=== PATIENT | female | born 1990 | race Two or more races ===

== ENCOUNTER 2025-06-07 08:23 | Outpatient (CLI) | payer OTHER ==
[2025-06-07 08:53] LABS: Hematocrit 41.6 % (36.0-46.0); Hemoglobin 13.7 g/dL (12.2-16.2); Mean Corpuscular Hemoglobin 26.2 pg (28.0-32.0); Mean Corpuscular Volume 79.5 fL (80.0-100.0); Nucleated Red Blood Cells % 0.0 %
[2025-06-07 09:48] LABS: Alanine Aminotransferase 13 U/L (7-40); Albumin 4.5 g/dL (3.2-4.8); Alkaline Phosphatase 81 U/L (46-116); Anion Gap 10 (5-15); BUN/Creatinine Ratio 15.5 (10.0-20.0); Blood Urea Nitrogen 13 mg/dL (9-23); Calcium 9.2 mg/dL (8.7-10.4); Carbon Dioxide 24 mmol/L (20-31); Chloride 105 mmol/L (98-107); Cholesterol 137 mg/dL (< 200); Glucose 99 mg/dL (74-106); HDL Cholesterol 40 mg/dL (40-59); Potassium 4.4 mmol/L (3.5-5.1); Sodium 139 mmol/L (136-145); Total Protein 7.7 g/dL (5.7-8.2); Triglycerides 87 mg/dL (< 150)
[2025-06-07 09:49] LABS: Bilirubin, Total 0.4 mg/dL (0.2-1.0)
== END 2025-06-07 17:00 | disposition home or self-care (01) ==
LOC: LAB 08:23
PROVIDERS: ATTEND Internal Medicine
DX: R63.5 Abnormal weight gain (principal); R22.2 Localized swelling, mass and lump, trunk
CPT/HCPCS: 36415; 80053; 80061; 82533; 84439; 84443; 85025; 85652